=== PATIENT | male | born 1985 | race Caucasian/White ===

== ENCOUNTER 2022-07-04 09:19 | Emergency (ER) | payer OTHER ==
[~2022-07-04] VITALS: Ht 165.1 cm; Wt 99.3 kg
== END 2022-07-04 14:22 | disposition home or self-care (01) ==
LOC: ER 09:19
DX: M79.672 Pain in left foot (principal)

== ENCOUNTER 2022-08-16 07:15 | Emergency (ER) | payer OTHER ==
[~2022-08-16] VITALS: Ht 162.6 cm; Wt 104.3 kg
[2022-08-16] MEDS ORDERED: NORFLEX100MG PO (08:34)
[2022-08-16] MEDS ORDERED: DICLOFENAC SODI75 MG PO (08:34)
== END 2022-08-16 09:09 | disposition home or self-care (01) ==
LOC: ER 07:15
DX: M62.838 Other muscle spasm (principal); M25.512 Pain in left shoulder; I10 Essential (primary) hypertension